=== PATIENT | female | born 1990 | race African-American/Black ===

== ENCOUNTER 2017-03-09 08:57 | Emergency (ER) | payer MEDICAID, OTHER ==
[~2017-03-09] VITALS: Ht 182.9 cm; Wt 73.0 kg
[2017-03-09] MEDS ORDERED: ONDANSETRON HCL 4MG/2ML VIAL IV STA (09:45)
[2017-03-09] MEDS ORDERED: SODIUM CHLORIDE 0.9% 1,000 ML IV ONE ×2 (09:45→10:31)
[2017-03-09] MEDS ORDERED: MORPHINE SULFATE 4 MG/ML CPJ (NOT FOR IM USE) IV STA (09:45)
[2017-03-09 10:06] LABS: BASOPHILS % 0.5 % (0.0-2.0); HEMATOCRIT. 33.8 % (36.0-48.0); HEMOGLOBIN. 11.3 g/dL (12.0-16.0); LYMPHOCYTES % 15.1 % (20.0-50.0); MEAN CORPUSCULAR HEMOGLOBIN 30.4 pg (28.0-32.0); MEAN CORPUSCULAR VOLUME 90.8 fL (81.0-99.0); MEAN PLATELET VOLUME 7.5 fl (7.4-10.4); MONOCYTES % 5.1 % (2.0-8.0); NEUTROPHILS % 78.3 % (40.0-76.0); PLATELET 265 x1000/uL (130-400); RED BLOOD CELL COUNT 3.72 mill/uL (4.2-5.4); RED CELL DISTRIBUTION WIDTH 14.1 % (11.6-14.6)
[2017-03-09 10:06] LABS: GLUCOSE URINE NEGATIVE (NEGATIVE); KETONES URINE NEGATIVE (NEGATIVE); LEUKOCYTE ESTERASE URINE 1+ (NEGATIVE); NITRITE URINE NEGATIVE (NEGATIVE); OCCULT BLOOD URINE 1+ (NEGATIVE); PROTEIN URINE TRACE (NEGATIVE); SPECIFIC GRAVITY URINE 1.026 (1.005-1.030); UROBILINOGEN URINE 0.2 E.U./dL (0.2-1.0)
[2017-03-09 10:18] LABS: CLARITY URINE SL HAZY (CLEAR); COLOR URINE YELLOW (YELLOW)
[2017-03-09 10:22] LABS: *AMPHETAMINES SCREEN URINE NEGATIVE (NEGATIVE); *BARBITURATES SCREEN URINE NEGATIVE (NEGATIVE); *BENZODIAZEPINES SCREEN URINE NEGATIVE (NEGATIVE); *COCAINE SCREEN URINE NEGATIVE (NEGATIVE); METHADONE URINE SCREEN NEGATIVE (NEGATIVE); OPIATES URINE SCREEN NEGATIVE (NEGATIVE); PHENCYCLIDINE URINE SCREEN NEGATIVE (NEGATIVE)
[2017-03-09 10:25] LABS: CARBON DIOXIDE 27 mEq/L (21-32); CHLORIDE 106 mEq/L (98-107); ETHANOL BLOOD < 10 mg/dL; TROPONIN I < 0.02 ng/mL (0.00-0.04)
[2017-03-09 10:25] LABS: CANNABINOID URINE SCREEN PRESUMTIVE POSITIVE (NEGATIVE)
[2017-03-09] MEDS ORDERED: CEFTRIAXONE 1 G PREMIX 50 ML IV ONE (10:30)
[2017-03-09 10:44] LABS: HCG SCREEN NEGATIVE
[2017-03-09] MEDS ORDERED: MORPHINE SULFATE 4 MG/ML CPJ (NOT FOR IM USE) IV ONE ×2 (11:45→13:45)
[2017-03-09] MEDS ORDERED: ONDANSETRON HCL 4MG/2ML VIAL IV ONE (12:00)
[2017-03-09 13:48] VITALS: BP 121/60
[2017-03-09] MEDS ORDERED: IOHEXOL-350 100 ML BOTTLE ONE (14:12)
[2017-03-09] MEDS ORDERED: SODIUM CHLORIDE 0.9% 10ML VIAL ONE (14:12)
== END 2017-03-09 13:54 | disposition short-term general hospital (02) ==
LOC: ER 10:28
DX: I71.01 Dissection of thoracic aorta (principal); N39.0 Urinary tract infection, site not specified; D64.9 Anemia, unspecified; Q87.40 Marfan syndrome, unspecified; Z88.6 Allergy status to analgesic agent
CPT/HCPCS: 36415; 71010; 71275; 74174; 80053; 80305; 81001; 82962; 83605; 83690; 83880; 84484; 84703; 85025; 93005; 96374; 96375; 96376; 99291; A4216; G0482; J0696; J2270; J2405; Q9967; Z7610; J7030

== ENCOUNTER 2017-03-30 21:14 | Emergency (ER) | payer MEDICAID, OTHER ==
[~2017-03-30] VITALS: Ht 185.4 cm; Wt 68.5 kg
[2017-03-30] MEDS ORDERED: SODIUM CHLORIDE 0.9% 1000ML BAG (SEPSIS BOLUS) IV ONE (22:00)
[2017-03-30] MEDS ORDERED: LORAZEPAM 2MG/ML CPJ IV ONE (22:15)
[2017-03-30] MEDS ORDERED: MORPHINE SULFATE 4 MG/ML CPJ (NOT FOR IM USE) IV STA (22:20)
[2017-03-30] MEDS ORDERED: ONDANSETRON HCL 4MG/2ML VIAL IV STA (22:20)
[2017-03-30] MEDS ORDERED: NITROGLYCERIN 0.4MG TABLET SL SL PRN (22:30)
[2017-03-30] MEDS ORDERED: ASPIRIN 325MG EC TABLET PO ONE (22:30)
[2017-03-30 23:33] LABS: EOSINOPHILS % 2.1 % (0.0-5.0); HEMOGLOBIN. 8.2 g/dL (12.0-16.0); LYMPHOCYTES % 19.6 % (20.0-50.0); MEAN CORPUSCULAR HEMOGLOBIN 30.8 pg (28.0-32.0); MEAN CORPUSCULAR VOLUME 90.4 fL (81.0-99.0); MEAN PLATELET VOLUME 7.3 fl (7.4-10.4); MONOCYTES % 8.2 % (2.0-8.0); NEUTROPHILS % 69.1 % (40.0-76.0); PLATELET 441 x1000/uL (130-400); RED BLOOD CELL COUNT 2.65 mill/uL (4.2-5.4); RED CELL DISTRIBUTION WIDTH 15.7 % (11.6-14.6)
[2017-03-30 23:41] LABS: HCG SCREEN NEGATIVE
[2017-03-30 23:50] LABS: BETA HYDROXYBUTYRATE 0.1 mMol/L (0.0-0.3); CARBON DIOXIDE 28 mEq/L (21-32); CHLORIDE 106 mEq/L (98-107); PHOSPHORUS 3.2 mg/dL (2.5-4.9); TROPONIN I < 0.02 ng/mL (0.00-0.04)
[2017-03-31 00:01] LABS: INR 1.1; PARTIAL THROMBOPLASTIN TIME 29.4 sec (24.0-34.0); PROTHROMBIN TIME 11.1 sec
[2017-03-31] MEDS ORDERED: LABETALOL 5MG/ML SYR 20 MG/4 ML SYRINGE IV ONE (01:30)
[2017-03-31] MEDS ORDERED: MORPHINE SULFATE 4 MG/ML CPJ (NOT FOR IM USE) IV ONE (01:30)
[2017-03-31 03:35] VITALS: BP 168/83
[2017-03-31] MEDS ORDERED: IOHEXOL-350 100 ML BOTTLE ONE (11:13)
[2017-03-31] MEDS ORDERED: SODIUM CHLORIDE 0.9% 10ML VIAL ONE (11:13)
== END 2017-03-31 04:10 | disposition home or self-care (01) ==
LOC: ER 21:43
DX: R07.89 Other chest pain (principal); R42 Dizziness and giddiness; I10 Essential (primary) hypertension; I31.3 Pericardial effusion (noninflammatory); J98.11 Atelectasis; I71.01 Dissection of thoracic aorta; J90 Pleural effusion, not elsewhere classified; D64.9 Anemia, unspecified
CPT/HCPCS: 36415; 71010; 71275; 80053; 82010; 83605; 83690; 83735; 83880; 84100; 84484; 84703; 85025; 85610; 85730; 86850; 86900; 86901; 87040; 93005; 96374; 96375; 96376; 99285; A4216; J2270; J2405; J3490; Q9967; Z7610; J7030

== ENCOUNTER 2017-03-31 23:53 | Emergency (ER) | payer MEDICAID, OTHER ==
[~2017-03-31] VITALS: Ht 185.4 cm; Wt 68.0 kg
[2017-04-01] MEDS ORDERED: SODIUM CHLORIDE 0.9% 1,000 ML IV ONE (01:13)
[2017-04-01] MEDS ORDERED: MORPHINE SULFATE 4 MG/ML CPJ (NOT FOR IM USE) IV STA (01:13)
[2017-04-01] MEDS ORDERED: ONDANSETRON HCL 4MG/2ML VIAL IV STA (01:13)
[2017-04-01 01:51] LABS: BASOPHILS % 0.7 % (0.0-2.0); HEMATOCRIT. 23.1 % (36.0-48.0); HEMOGLOBIN. 7.9 g/dL (12.0-16.0); LYMPHOCYTES % 13.6 % (20.0-50.0); MEAN CORPUSCULAR HEMOGLOBIN 30.8 pg (28.0-32.0); MEAN CORPUSCULAR VOLUME 90.1 fL (81.0-99.0); MONOCYTES % 8.4 % (2.0-8.0); NEUTROPHILS % 75.3 % (40.0-76.0); PLATELET 418 x1000/uL (130-400); RED BLOOD CELL COUNT 2.56 mill/uL (4.2-5.4); RED CELL DISTRIBUTION WIDTH 15.9 % (11.6-14.6)
[2017-04-01 01:57] LABS: INR 1.1; PROTHROMBIN TIME 11.5 sec
[2017-04-01 02:02] LABS: HCG SCREEN NEGATIVE
[2017-04-01 02:04] LABS: CARBON DIOXIDE 27 mEq/L (21-32); CHLORIDE 106 mEq/L (98-107); TROPONIN I < 0.02 ng/mL (0.00-0.04)
[2017-04-01 05:07] VITALS: BP 134/71
== END 2017-04-01 05:26 | disposition home or self-care (01) ==
LOC: ER 23:53
DX: R07.89 Other chest pain (principal); I10 Essential (primary) hypertension; Q87.40 Marfan syndrome, unspecified; D57.3 Sickle-cell trait; Z98.890 Other specified postprocedural states
CPT/HCPCS: 36415; 71010; 80053; 83880; 84484; 84703; 85025; 85610; 93005; 96361; 96374; 96375; 99285; J2270; J2405; J7030

== ENCOUNTER 2017-04-08 23:41 | Emergency (ER) | payer MEDICAID, OTHER ==
[~2017-04-08] VITALS: Ht 185.4 cm; Wt 69.0 kg
[2017-04-09] MEDS ORDERED: NITROGLYCERIN OINT 1GM/INCH UDPKT TD STA (00:58)
[2017-04-09] MEDS ORDERED: ONDANSETRON HCL 4MG/2ML VIAL IV STA (00:58)
[2017-04-09] MEDS ORDERED: MORPHINE SULFATE 4 MG/ML CPJ (NOT FOR IM USE) IV STA (00:58)
[2017-04-09 01:41] LABS: BASOPHILS % 0.9 % (0.0-2.0); HEMATOCRIT. 27.7 % (36.0-48.0); HEMOGLOBIN. 9.8 g/dL (12.0-16.0); LYMPHOCYTES % 20.2 % (20.0-50.0); MEAN CORPUSCULAR HEMOGLOBIN 31.8 pg (28.0-32.0); MEAN CORPUSCULAR VOLUME 89.8 fL (81.0-99.0); MEAN PLATELET VOLUME 7.3 fl (7.4-10.4); MONOCYTES % 10.5 % (2.0-8.0); NEUTROPHILS % 65.4 % (40.0-76.0); PLATELET 365 x1000/uL (130-400); RED BLOOD CELL COUNT 3.08 mill/uL (4.2-5.4); RED CELL DISTRIBUTION WIDTH 15.3 % (11.6-14.6)
[2017-04-09 01:46] LABS: TROPONIN I < 0.02 ng/mL (0.00-0.04)
[2017-04-09 01:47] LABS: PARTIAL THROMBOPLASTIN TIME 27.9 sec (24.0-34.0); PROTHROMBIN TIME 10.7 sec
[2017-04-09 01:48] LABS: HCG SCREEN NEGATIVE
[2017-04-09 02:16] LABS: CARBON DIOXIDE 28 mEq/L (21-32); CHLORIDE 104 mEq/L (98-107)
[2017-04-09] MEDS ORDERED: MORPHINE SULFATE 4 MG/ML CPJ (NOT FOR IM USE) IV ONE (04:30)
[2017-04-09 04:37] VITALS: BP 142/84
[2017-04-09] MEDS ORDERED: SODIUM CHLORIDE 0.9% 10ML VIAL ONE (14:34)
[2017-04-09] MEDS ORDERED: IOHEXOL-350 100 ML BOTTLE ONE (14:34)
== END 2017-04-09 06:39 | disposition home or self-care (01) ==
LOC: ER 23:41
DX: I71.00 Dissection of unspecified site of aorta (principal); R07.9 Chest pain, unspecified; I34.1 Nonrheumatic mitral (valve) prolapse; Q87.418 Marfan syndrome with other cardiovascular manifestations; I25.10 Atherosclerotic heart disease of native coronary artery without angina pectoris
CPT/HCPCS: 36415; 71010; 71275; 74174; 80053; 83690; 83880; 84484; 84703; 85025; 85610; 85730; 93005; 96374; 96375; 96376; 99285; A4216; J2270; J2405; J7040; Q9967; Z7610

== ENCOUNTER 2017-04-14 20:38 | Emergency (ER) | payer MEDICAID, OTHER ==
[~2017-04-14] VITALS: Ht 182.9 cm; Wt 68.0 kg
[2017-04-14 21:02] VITALS: BP 136/80
== END 2017-04-14 21:23 | disposition left against medical advice (07) ==
LOC: ER 20:38
DX: Z53.21 Procedure and treatment not carried out due to patient leaving prior to being seen by health care provider (principal); I10 Essential (primary) hypertension

== ENCOUNTER 2017-04-15 04:26 | Emergency (ER) | payer MEDICAID, OTHER ==
[~2017-04-15] VITALS: Ht 182.9 cm; Wt 68.0 kg
[2017-04-15] MEDS ORDERED: ONDANSETRON HCL 4MG/2ML VIAL IV ONE (06:00)
[2017-04-15] MEDS ORDERED: FAMOTIDINE 20MG/2ML VIAL IV ONE (06:00)
[2017-04-15] MEDS ORDERED: SODIUM CHLORIDE 0.9% 500 ML IV ONE (06:00)
[2017-04-15 06:48] LABS: BASOPHILS % 0.9 % (0.0-2.0); EOSINOPHILS % 2.5 % (0.0-5.0); HEMATOCRIT. 26.9 % (36.0-48.0); HEMOGLOBIN. 9.3 g/dL (12.0-16.0); LYMPHOCYTES % 15.8 % (20.0-50.0); MEAN CORPUSCULAR HEMOGLOBIN 31.1 pg (28.0-32.0); MEAN CORPUSCULAR VOLUME 90.3 fL (81.0-99.0); MEAN PLATELET VOLUME 7.5 fl (7.4-10.4); MONOCYTES % 9.8 % (2.0-8.0); PLATELET 299 x1000/uL (130-400); RED BLOOD CELL COUNT 2.98 mill/uL (4.2-5.4); RED CELL DISTRIBUTION WIDTH 14.9 % (11.6-14.6)
[2017-04-15 06:51] LABS: CARBON DIOXIDE 27 mEq/L (21-32); CHLORIDE 106 mEq/L (98-107); TROPONIN I < 0.02 ng/mL (0.00-0.04)
[2017-04-15 07:23] VITALS: BP 119/83
[2017-04-15] MEDS ORDERED: TRAMADOL 50MG TABLET PO ONE (07:45)
[2017-04-15] MEDS ORDERED: ACETAMINOPHEN 325MG TABLET PO ONE (07:45)
== END 2017-04-15 07:30 | disposition home or self-care (01) ==
LOC: ER 04:26
DX: R07.89 Other chest pain (principal); Q87.418 Marfan syndrome with other cardiovascular manifestations; I11.0 Hypertensive heart disease with heart failure; Z95.1 Presence of aortocoronary bypass graft; Z95.2 Presence of prosthetic heart valve
CPT/HCPCS: 36415; 71020; 80048; 81025; 84484; 85025; 85379; 93005; 96361; 96374; 96375; 99285; J2405; J3490; J7040; Z7610

== ENCOUNTER 2017-04-22 02:49 | Emergency (ER) | payer OTHER ==
[~2017-04-22] VITALS: Ht 182.9 cm; Wt 68.0 kg
[2017-04-22] MEDS ORDERED: MORPHINE SULFATE 4 MG/ML CPJ (NOT FOR IM USE) IV STA (04:37)
[2017-04-22] MEDS ORDERED: ONDANSETRON HCL 4MG/2ML VIAL IV STA (04:37)
[2017-04-22 05:04] LABS: BASOPHILS % 0.8 % (0.0-2.0); HEMATOCRIT. 28.6 % (36.0-48.0); HEMOGLOBIN. 9.8 g/dL (12.0-16.0); LYMPHOCYTES % 15.9 % (20.0-50.0); MEAN CORPUSCULAR HEMOGLOBIN 30.9 pg (28.0-32.0); MEAN CORPUSCULAR VOLUME 90.5 fL (81.0-99.0); MEAN PLATELET VOLUME 7.4 fl (7.4-10.4); MONOCYTES % 7.7 % (2.0-8.0); NEUTROPHILS % 72.6 % (40.0-76.0); PLATELET 288 x1000/uL (130-400); RED BLOOD CELL COUNT 3.16 mill/uL (4.2-5.4); RED CELL DISTRIBUTION WIDTH 15.2 % (11.6-14.6)
[2017-04-22 05:07] LABS: PARTIAL THROMBOPLASTIN TIME 27.6 sec (24.0-34.0); PROTHROMBIN TIME 10.7 sec
[2017-04-22 05:14] LABS: HCG SCREEN NEGATIVE
[2017-04-22 05:32] LABS: CARBON DIOXIDE 29 mEq/L (21-32); CHLORIDE 104 mEq/L (98-107); CREATINE KINASE 39 IU/L (26-192); TROPONIN I < 0.02 ng/mL (0.00-0.04)
[2017-04-22 05:33] LABS: CREATINE KINASE MB FRACTION 0.7 ng/mL (0.5-3.6)
[2017-04-22 05:49] LABS: *AMPHETAMINES SCREEN URINE NEGATIVE (NEGATIVE); *BARBITURATES SCREEN URINE NEGATIVE (NEGATIVE); *BENZODIAZEPINES SCREEN URINE NEGATIVE (NEGATIVE); *COCAINE SCREEN URINE NEGATIVE (NEGATIVE); METHADONE URINE SCREEN NEGATIVE (NEGATIVE); OPIATES URINE SCREEN NEGATIVE (NEGATIVE); PHENCYCLIDINE URINE SCREEN NEGATIVE (NEGATIVE)
[2017-04-22 05:58] LABS: CANNABINOID URINE SCREEN PRESUMTIVE POSITIVE (NEGATIVE)
[2017-04-22 07:42] VITALS: BP 114/59
== END 2017-04-22 08:04 | disposition left against medical advice (07) ==
LOC: ER 02:49
DX: R07.89 Other chest pain (principal); Q87.418 Marfan syndrome with other cardiovascular manifestations; I25.2 Old myocardial infarction; I25.10 Atherosclerotic heart disease of native coronary artery without angina pectoris; I34.1 Nonrheumatic mitral (valve) prolapse
CPT/HCPCS: 36415; 71010; 80053; 80305; 82550; 82553; 83690; 83880; 84484; 84703; 85025; 85610; 85730; 93005; 96374; 96375; 99285; J2270; J2405; Z7610

== ENCOUNTER 2017-05-21 03:01 | Emergency (ER) | payer OTHER ==
[~2017-05-21] VITALS: Ht 182.9 cm; Wt 68.5 kg
[2017-05-21] MEDS ORDERED: HYDROCODONE/ACETAMINOPHEN 5/325MG TABLET PO ONE ×2 (03:30→06:30)
[2017-05-21 03:53] LABS: BASOPHILS % 1.1 % (0.0-2.0); EOSINOPHILS % 4.4 % (0.0-5.0); HEMATOCRIT. 30.5 % (36.0-48.0); HEMOGLOBIN. 10.2 g/dL (12.0-16.0); LYMPHOCYTES % 21.1 % (20.0-50.0); MEAN CORPUSCULAR HEMOGLOBIN 29.8 pg (28.0-32.0); MEAN CORPUSCULAR VOLUME 89.1 fL (81.0-99.0); MEAN PLATELET VOLUME 7.7 fl (7.4-10.4); MONOCYTES % 8.8 % (2.0-8.0); NEUTROPHILS % 64.6 % (40.0-76.0); PLATELET 283 x1000/uL (130-400); RED BLOOD CELL COUNT 3.42 mill/uL (4.2-5.4); RED CELL DISTRIBUTION WIDTH 13.8 % (11.6-14.6)
[2017-05-21 03:56] LABS: PROTHROMBIN TIME 10.3 sec (9.4-11.6)
[2017-05-21 04:05] LABS: CARBON DIOXIDE 29 mEq/L (21-32); CHLORIDE 105 mEq/L (98-107); TROPONIN I < 0.02 ng/mL (0.00-0.04)
[2017-05-21 06:57] VITALS: BP 137/72
[2017-05-21] MEDS ORDERED: IOHEXOL-300 100 ML BOTTLE ONE (13:59)
[2017-05-21] MEDS ORDERED: SODIUM CHLORIDE 0.9% 10ML VIAL ONE (13:59)
== END 2017-05-21 06:58 | disposition home or self-care (01) ==
LOC: ER 03:45
DX: R07.9 Chest pain, unspecified (principal)
CPT/HCPCS: 36415; 71010; 71260; 80053; 81025; 83880; 84484; 85025; 85610; 93005; 99291; A4216; Q9967

== ENCOUNTER 2017-08-07 20:25 | Emergency (ER) | payer OTHER ==
[~2017-08-07] VITALS: Ht 185.4 cm; Wt 70.0 kg
[2017-08-07 22:02] LABS: BASOPHILS % 1.3 % (0.0-2.0); EOSINOPHILS % 1.4 % (0.0-5.0); HEMATOCRIT. 33.1 % (36.0-48.0); HEMOGLOBIN. 10.9 g/dL (12.0-16.0); LYMPHOCYTES % 30.2 % (20.0-50.0); MEAN CORPUSCULAR HEMOGLOBIN 29.3 pg (28.0-32.0); MEAN CORPUSCULAR VOLUME 88.8 fL (81.0-99.0); MEAN PLATELET VOLUME 7.4 fl (7.4-10.4); MONOCYTES % 9.5 % (2.0-8.0); NEUTROPHILS % 57.6 % (40.0-76.0); PLATELET 269 x1000/uL (130-400); RED BLOOD CELL COUNT 3.73 mill/uL (4.2-5.4); RED CELL DISTRIBUTION WIDTH 15.3 % (11.6-14.6)
[2017-08-07 22:07] LABS: PROTHROMBIN TIME 10.5 sec (9.4-11.6)
[2017-08-07 22:16] LABS: CARBON DIOXIDE 25 mEq/L (21-32); CHLORIDE 106 mEq/L (98-107); TROPONIN I < 0.02 ng/mL (0.00-0.04)
[2017-08-07] MEDS ORDERED: HYDROCODONE/ACETAMINOPHEN 5/325MG TABLET PO ONE (22:45)
[2017-08-07] MEDS ORDERED: IOHEXOL-350 100 ML BOTTLE ONE (23:39)
[2017-08-08] MEDS ORDERED: MORPHINE SULFATE 4 MG/ML CPJ (NOT FOR IM USE) IV ONE (00:45)
[2017-08-08 00:50] VITALS: BP 129/70
== END 2017-08-08 00:50 | disposition left against medical advice (07) ==
LOC: ER 20:43
DX: I71.01 Dissection of thoracic aorta (principal); I10 Essential (primary) hypertension; I34.1 Nonrheumatic mitral (valve) prolapse; Z95.2 Presence of prosthetic heart valve
CPT/HCPCS: 36415; 71010; 71275; 80053; 83880; 84484; 85025; 85610; 93005; 99285; Q9967; Z7610

== ENCOUNTER 2018-03-08 02:40 | Emergency (ER) | payer MEDICAID, OTHER ==
[~2018-03-08] VITALS: Ht 182.9 cm; Wt 74.0 kg
[2018-03-08] MEDS ORDERED: MORPHINE SULFATE 4 MG/ML CPJ (NOT FOR IM USE) IV STA (03:47)
[2018-03-08] MEDS ORDERED: ASPIRIN 81MG TABLET PO ONE (04:00)
[2018-03-08 04:11] LABS: BASOPHILS % 1.2 % (0.0-2.0); EOSINOPHILS % 1.2 % (0.0-5.0); HEMATOCRIT. 37.3 % (36.0-48.0); HEMOGLOBIN. 12.4 g/dL (12.0-16.0); LYMPHOCYTES % 31.9 % (20.0-50.0); MEAN CORPUSCULAR HEMOGLOBIN 30.8 pg (28.0-32.0); MEAN CORPUSCULAR VOLUME 92.3 fL (81.0-99.0); MEAN PLATELET VOLUME 7.5 fl (7.4-10.4); MONOCYTES % 10.1 % (2.0-8.0); NEUTROPHILS % 55.6 % (40.0-76.0); PLATELET 259 x1000/uL (130-400); RED BLOOD CELL COUNT 4.03 mill/uL (4.2-5.4); RED CELL DISTRIBUTION WIDTH 15.7 % (11.6-14.6)
[2018-03-08 04:13] LABS: CHLORIDE 107 mEq/L (98-107)
[2018-03-08 04:16] LABS: INR 0.9; PROTHROMBIN TIME 9.6 sec (9.4-11.6)
[2018-03-08 04:34] LABS: COLOR URINE YELLOW (YELLOW); KETONES URINE NEGATIVE (NEGATIVE); LEUKOCYTE ESTERASE URINE 2+ (NEGATIVE); NITRITE URINE NEGATIVE (NEGATIVE); OCCULT BLOOD URINE 1+ (NEGATIVE); PH URINE 6.5 (4.5-8.0); PROTEIN URINE NEGATIVE (NEGATIVE); SPECIFIC GRAVITY URINE 1.022 (1.005-1.030)
[2018-03-08 04:39] LABS: CLARITY URINE SL HAZY (CLEAR)
[2018-03-08] MEDS ORDERED: CEFTRIAXONE 1 G PREMIX 50 ML IV ONE (06:00)
[2018-03-08 06:47] VITALS: BP 146/84
[2018-03-08] MEDS ORDERED: IPRATROPIUM/ALBUTEROL 0.5-3(2.5)MG/3ML NEB INH PRN (07:00)
[2018-03-08] MEDS ORDERED: ACETAMINOPHEN 325MG TABLET PO PRN (07:00)
[2018-03-08] MEDS ORDERED: ONDANSETRON HCL 4MG/2ML VIAL IV PRN (07:00)
[2018-03-08] MEDS ORDERED: CLONIDINE 0.1MG TABLET PO PRN (07:00)
[2018-03-08] MEDS ORDERED: GUAIFENESIN 200MG/10ML SUGAR FREE UDC PO PRN (07:00)
[2018-03-08] MEDS ORDERED: DOCUSATE SODIUM 100MG CAPSULE PO PRN (07:00)
[2018-03-08] MEDS ORDERED: LORAZEPAM 2MG/ML CPJ IV PRN (07:00)
[2018-03-08] MEDS ORDERED: MAGNESIUM/ALUMINUM HYDROXIDE/SIMETHICONE 30ML UDC PO PRN (07:00)
[2018-03-08] MEDS ORDERED: DIPHENHYDRAMINE 50MG/ML VIAL IV PRN (07:00)
[2018-03-08] MEDS ORDERED: MORPHINE SULFATE 4 MG/ML CPJ (NOT FOR IM USE) IV PRN (07:00)
[2018-03-08] MEDS ORDERED: HYDROCODONE/ACETAMINOPHEN 5/325MG TABLET PO PRN (07:00)
[2018-03-08] MEDS ORDERED: NA PHOS,M-B/NA PHOS,DI-BA ENEMA 118ML PR PRN (07:00)
== END 2018-03-08 07:42 | disposition left against medical advice (07) ==
LOC: ER 03:33 → EDBEDREQTM 05:52 → EDBEDREQ 05:52 → CANRESERV 07:17 → ENRESERV 07:17 → ER 07:42 → CANBEDREQ 08:50
DX: I24.9 Acute ischemic heart disease, unspecified (principal); N39.0 Urinary tract infection, site not specified; I10 Essential (primary) hypertension; Z95.1 Presence of aortocoronary bypass graft; Z87.891 Personal history of nicotine dependence; Z88.5 Allergy status to narcotic agent
CPT/HCPCS: 36415; 71045; 80053; 81003; 81025; 83880; 84484; 85025; 85610; 85730; 87077; 87086; 93005; 96365; 96375; 99285; J0696; J2270; Z7610

== ENCOUNTER 2018-07-28 05:57 | Emergency (ER) | payer MEDICAID ==
[~2018-07-28] VITALS: Ht 185.4 cm; Wt 78.0 kg
[2018-07-28 07:56] LABS: CHLORIDE 105 mEq/L (98-107)
[2018-07-28 07:59] LABS: PARTIAL THROMBOPLASTIN TIME 32.4 sec (23.4-31.0)
[2018-07-28 08:04] LABS: CLARITY URINE CLOUDY (CLEAR); COLOR URINE YELLOW (YELLOW); KETONES URINE TRACE (NEGATIVE); LEUKOCYTE ESTERASE URINE 3+ (NEGATIVE); NITRITE URINE NEGATIVE (NEGATIVE); OCCULT BLOOD URINE 2+ (NEGATIVE); PROTEIN URINE 1+ (NEGATIVE); SPECIFIC GRAVITY URINE 1.023 (1.005-1.030)
[2018-07-28 08:05] LABS: HEMATOCRIT. 35.7 % (36.0-48.0); HEMOGLOBIN. 11.6 g/dL (12.0-16.0); MEAN CORPUSCULAR HEMOGLOBIN 30.3 pg (28.0-32.0); MEAN CORPUSCULAR VOLUME 93.2 fL (81.0-99.0); MEAN PLATELET VOLUME 7.3 fl (7.4-10.4); PLATELET 330 x1000/uL (130-400); RED BLOOD CELL COUNT 3.83 mill/uL (4.2-5.4); RED CELL DISTRIBUTION WIDTH 14.3 % (11.6-14.6)
[2018-07-28 09:00] LABS: PLATELET ESTIMATE NORMAL
[2018-07-28] MEDS ORDERED: ONDANSETRON HCL 4MG/2ML INJ IV ONE (10:15)
[2018-07-28] MEDS ORDERED: MORPHINE SULFATE 4 MG/ML CPJ (NOT FOR IM USE) IV ONE (10:15)
[2018-07-28] MEDS ORDERED: TRAMADOL 50MG TABLET PO ONE (12:45)
[2018-07-28 13:58] VITALS: BP 114/63
[2018-07-28] MEDS ORDERED: IOHEXOL-350 100 ML BOTTLE ONE (15:12)
== END 2018-07-28 14:00 | disposition home or self-care (01) ==
LOC: ER 05:57
DX: R07.89 Other chest pain (principal); I10 Essential (primary) hypertension; M19.90 Unspecified osteoarthritis, unspecified site; I34.1 Nonrheumatic mitral (valve) prolapse; I34.0 Nonrheumatic mitral (valve) insufficiency; R06.02 Shortness of breath; Z98.890 Other specified postprocedural states; Z95.1 Presence of aortocoronary bypass graft; Z88.8 Allergy status to other drugs, medicaments and biological substances
CPT/HCPCS: 36415; 71045; 71275; 74174; 80053; 81003; 81025; 83880; 84484; 85025; 85610; 85730; 87077; 87086; 93005; 96374; 96375; 99285; J2270; J2405; Q9967